=== PATIENT | male | born 1940 | race Caucasian/White ===

== ENCOUNTER 2017-06-04 16:52 | Inpatient (IN) | payer MEDICARE, BC ==
[~2017-06-04] VITALS: Ht 177.8 cm; Wt 77.9 kg
[~2017-06-04 16:52] MED LIST: AMLO10 PO; ASPI1TAB7 PO; BIOT5000 PO; CINSULIN PO; CO Q100C9 PO; CRAN1TAB2 PO; DIOV160T3 PO; FISH1000 PO; NIAC500 PO; OCUVTAB PO; PROS5TAB2 PO; SAW160TA PO; SIMV20TA PO; VITA1CAP2 PO
[2017-06-04 16:54] VITALS: BP 190/86; PULSE 70; RESP 18; TEMP 98.4; O2SAT 97
--- NOTE | 2017-06-04 17:14 | PD ---
Physical Exam Date Seen by Provider: Jun 04, 2017 Time Seen by Provider: 17:12 Data Data Last Documented VS Vital Signs Date Time Temp Pulse Resp B/P Pulse Ox O2 Delivery O2 Flow Rate FiO2 06/04/17 16:54 98.4 70 18 190/86 97 Room Air [facility] Supervised Visit with YANCI: No Narrative Course 77 YO with complaint of abnormal lab values on outpatient labs. Patient states that his Hgb is 7.6, drawn 8. Patient endorses CIFUENTES and increased somnolence. PCP Dr. James Ireland Vitals reviewed. Patient seen in triage, awaiting bed placement. Lisa Morrow Jun 04, 2017 17:14
[2017-06-04 17:54] LABS: AUTOMATED NEUTROPHIL # 4.1 TH/MM3 (1.8-7.7); BASOPHIL % 0.5 % (0.0-2.0); EOSINOPHIL # 0.1 TH/MM3 (0-0.4); EOSINOPHIL % 2.4 % (0.0-4.0); HEMATOCRIT 25.9 % (39.0-51.0); HEMO FLAGS DIFF FINAL; LYMPH % 14.2 % (9.0-44.0); LYMPHOCYTE # 0.8 TH/MM3 (1.0-4.8); MEAN CELL VOLUME 84.1 FL (80.0-100.0); MEAN CORPUSCULAR HEMOGLOBIN 29.1 PG (27.0-34.0); MEAN CORPUSCULAR HGB CONC 34.6 % (32.0-36.0); MONO % 8.8 % (0.0-8.0); NEUT % 74.1 % (16.0-70.0); PLATELET COUNT 212 TH/MM3 (150-450); RED BLOOD COUNT 3.08 MIL/MM3 (4.50-5.90); RED CELL DISTRIBUTION WIDTH 14.7 % (11.6-17.2); WHITE BLOOD COUNT 5.6 TH/MM3 (4.0-11.0)
[2017-06-04 18:02] LABS: INTERNATIONAL NORMALIZED RATIO 1.3 RATIO; PROTHROMBIN TIME - PATIENT 14.2 SEC (9.8-11.6)
[2017-06-04 18:28] LABS: ANION GAP 7 MEQ/L (5-15); AST (GOT) 26 U/L (15-37); BICARBONATE 26.3 MEQ/L (21.0-32.0); BLOOD UREA NITROGEN 19 MG/DL (7-18); CHLORIDE 102 MEQ/L (98-107); GLOMERULAR FILTRATION RATE 54 ML/MIN (>89); SODIUM (NA) 135 MEQ/L (136-145)
[2017-06-04 18:29] LABS: ALT (GPT) 25 U/L (12-78)
[2017-06-04 18:31] LABS: ALKALINE PHOSPHATASE 159 U/L (45-117); TOTAL BILIRUBIN ADULT 0.5 MG/DL (0.2-1.0)
[2017-06-04] MEDS ORDERED: FERR325T8 PO (19:53)
[2017-06-04] MEDS ORDERED: CARV12.52 PO (19:53)
[2017-06-04] MEDS ORDERED: FINA5TAB2 PO (19:53)
[2017-06-04] MEDS ORDERED: NIAC1TAB5 PO (19:53)
[2017-06-04] MEDS ORDERED: ASPI-110 PO (19:53)
[2017-06-04] MEDS ORDERED: CLOP75TA PO (19:53)
[2017-06-04] MEDS ORDERED: LOSA100T PO (19:53)
[2017-06-04] MEDS ORDERED: ATOR20TA15 PO (19:53)
[2017-06-04] MEDS ORDERED: FURO20TA PO (19:53)
[2017-06-04] MEDS ORDERED: POTA-163 PO (19:53)
[2017-06-04] MEDS ORDERED: HYDR-3799 PO (19:53)
--- NOTE | 2017-06-04 20:11 | PD ---
HPI Chief Complaint: Abnormal Results Time Seen by Provider: 19:10 Travel History International Travel<30 days: No Contact w/Intl Traveler<30days: No Traveled to known affect area: No History of Present Illness HPI Patient is a 77 year old male who comes in because he was told his blood level is low and that he needs a transfusion. He has been in an out of hospitals for the past few months. He was recently admitted to the [facility] for "a while" due to what he says was a MRSA infection in his chest. He says he has been home for about 1 week. He says since leaving the hospital, he has been very weak and gets SOB with any exertion. He says he has started doing physical therapy, but has not seen any improvements. He denies chest pain, nausea or vomiting. He has not had any fevers or chills. PFSH Past Medical History Arthritis: Yes Asthma: No Autoimmune Disease: No Blood Disorders: No Anxiety: No Depression: No Heart Rhythm Problems: Yes Cancer: No Cardiovascular Problems: Yes (6 VESSEL BYPASS SEP 2017) High Cholesterol: No Chest Pain: No Congestive Heart Failure: No COPD: No Cerebrovascular Accident: No Diabetes: No Diminished Hearing: No Endocrine: No GERD: No Glaucoma: No Genitourinary: No Headaches: No Hepatitis: No Hiatal Hernia: No Hypertension: Yes Immune Disorder: No Kidney Stones: No Medical other: Yes (ARTHRITIS, PSORIASIS) Musculoskeletal: Yes (OSTEOPENIA LOWER BACK) Neurologic: No Psychiatric: No Reproductive: No Respiratory: Yes Migraines: No Myocardial Infarction: No Renal Failure: No Seizures: No Sickle Cell Disease: No Sleep Apnea: No Thyroid Disease: No Ulcer: No Past Surgical History Abdominal Surgery: Yes (CHOLECYSTECTOMY 2004) AICD: No Appendectomy: No Arteriovenous Shunt: No Cardiac Surgery: No Cholecystectomy: Yes Coronary Artery Bypass Graft: Yes (4X) Ear Surgery: No Endocrine Surgery: No Eye Surgery: No Gynecologic Surgery: No Insulin Pump: No Joint Replacement: Yes (RT KNEE) Oral Surgery: No Pacemaker: No Thoracic Surgery: No Other Surgery: Yes Social History Alcohol Use: No Tobacco Use: No (never) Substance Use: Yes (HISTORY OF ALCHOLOL USE 20 YEARS AGO) Allergies-Medications (Allergen,Severity, Reaction): Coded Allergies: CRUZ Inhibitors (Unverified Allergy, Intermediate, Swelling, 09/11/13) Penicillin (Unverified Allergy, Intermediate, Hives, 4/29/10) 02/20/10 STATES TESTING DONE AT [facility] PROVES HE IS NOT ALLERGIC TO PENICILLINS Reported Meds & Prescriptions Reported Meds & Active Scripts Active Reported Niacin ER 1,000 Mg Tab 1,000 Mg PO HS Finasteride 5 Mg Tab 5 Mg PO DAILY Do not crush. Furosemide 20 Mg Tab 20 Mg PO DAILY Clopidogrel (Clopidogrel Bisulfate) 75 Mg Tab 75 Mg PO DAILY Atorvastatin (Atorvastatin Calcium) 20 Mg Tab 20 Mg PO HS Ferrous Sulfate 325 Mg (65 Mg Iron) Tablet 325 Mg PO BID Aspirin 81 (Aspirin) 81 Mg Tabdr 81 Mg PO DAILY Carvedilol 12.5 Mg Tab 12.5 Mg PO BID Hydralazine HCl 25 Mg Tablet 25 Mg PO BID Potassium Chloride ER (Potassium Chloride) 20 Meq Tab 20 Meq PO DAILY Losartan (Losartan Potassium) 100 Mg Tab 100 Mg PO DAILY Review of Systems Except as stated in HPI: all other systems reviewed are Neg General / Constitutional: No: Fever, Chills Eyes: No: Blurred Vision HENT: No: Headaches Cardiovascular: No: Chest Pain or Discomfort Respiratory: Positive: Cough, Shortness of Breath Gastrointestinal: No: Nausea, Vomiting, Abdominal Pain Musculoskeletal: Positive: Edema, No: Pain Neurologic: Positive: Weakness Physical Exam Narrative GENERAL: Awake and alert, in no acute distress. SKIN: Focused skin assessment warm/dry. HEAD: Atraumatic. Normocephalic. EYES: Pupils equal and round. No scleral icterus. ENT: Mucous membranes pink and moist. NECK: Trachea midline. No JVD. CARDIOVASCULAR: Regular rate and rhythm. No murmur appreciated. RESPIRATORY: No accessory muscle use. Clear to auscultation. Breath sounds equal bilaterally. GASTROINTESTINAL: Abdomen soft, non-tender, nondistended. MUSCULOSKELETAL: No obvious deformities. No clubbing. No cyanosis. 1+ pitting edema of bilateral lower extremities. NEUROLOGICAL: Awake and alert. No obvious cranial nerve deficits. Motor grossly within normal limits. Normal speech. PSYCHIATRIC: Appropriate mood and affect; insight and judgment normal. Data Data Last Documented VS Vital Signs Date Time Temp Pulse Resp B/P Pulse Ox O2 Delivery O2 Flow Rate FiO2 06/04/17 16:54 98.4 70 18 190/86 97 Room Air Orders Complete Blood Count With Diff (06/04/17 17:14) Comprehensive Metabolic Panel (06/04/17 17:14) Prothrombin Time / Inr (Pt) (06/04/17 17:14) Act Partial Throm Time (Ptt) (06/04/17 17:14) Type And Screen (06/04/17 17:14) B-Type Natriuretic Peptide (06/04/17 19:47) Chest, Pa & Lat (06/04/17 ) Ct Pulmonary Angiogram (06/04/17 19:47) Troponin I (06/04/17 19:47) Electrocardiogram (06/04/17 ) Iohexol 350 Inj (Omnipaque 350 Inj) (06/04/17 21:44) Vancomycin Inj (Vancomycin Inj) (06/04/17 22:45) Cefepime Inj (Maxipime Inj) (06/04/17 22:45) Admit Order (Ed Use Only) (06/04/17 ) Labs Laboratory Tests Test 06/04/17 17:25 White Blood Count 5.6 TH/MM3 Red Blood Count 3.08 MIL/MM3 Hemoglobin 8.9 GM/DL Hematocrit 25.9 % Mean Corpuscular Volume 84.1 FL Mean Corpuscular Hemoglobin 29.1 PG Mean Corpuscular Hemoglobin 34.6 % Concent Red Cell Distribution Width 14.7 % Platelet Count 212 TH/MM3 Mean Platelet Volume 7.7 FL Neutrophils (%) (Auto) 74.1 % Lymphocytes (%) (Auto) 14.2 % Monocytes (%) (Auto) 8.8 % Eosinophils (%) (Auto) 2.4 % Basophils (%) (Auto) 0.5 % Neutrophils # (Auto) 4.1 TH/MM3 Lymphocytes # (Auto) 0.8 TH/MM3 Monocytes # (Auto) 0.5 TH/MM3 Eosinophils # (Auto) 0.1 TH/MM3 Basophils # (Auto) 0.0 TH/MM3 CBC Comment DIFF FINAL Differential Comment Prothrombin Time 14.2 SEC Prothromb Time International 1.3 RATIO Ratio Activated Partial 28.0 SEC Thromboplast Time Sodium Level 135 MEQ/L Potassium Level 4.0 MEQ/L Chloride Level 102 MEQ/L Carbon Dioxide Level 26.3 MEQ/L Anion Gap 7 MEQ/L Blood Urea Nitrogen 19 MG/DL Creatinine 1.29 MG/DL Estimat Glomerular Filtration 54 ML/MIN Rate Random Glucose 109 MG/DL Calcium Level 8.2 MG/DL Total Bilirubin 0.5 MG/DL Aspartate Amino Transf 26 U/L (AST/SGOT) Alanine Aminotransferase 25 U/L (ALT/SGPT) Alkaline Phosphatase 159 U/L Troponin I LESS THAN 0.02 NG/ML B-Type Natriuretic Peptide 1363 PG/ML Total Protein 6.9 GM/DL Albumin 1.8 GM/DL Blood Type A POSITIVE Antibody Screen NEGATIVE MDM Medical Decision Making Medical Screen Exam Complete: Yes Emergency Medical Condition: Yes Interpretation(s) ECG shows sinus bradycardia at 59, no ST elevation or depression, normal intervals. Differential Diagnosis CHF exacerbation versus pneumonia versus PE Narrative Course Patient is a 77-year-old male who originally came in because his physician told him that his hemoglobin was low. He complains of shortness of breath on exertion. Exam shows crackles at both bases. IV established, labs sent. Labs show hemoglobin of 8.9. CTA of his chest shows evidence of possible empyema. Patient started on antibiotics. He will likely require drainage of the fluid in his lungs. Admitted for further management. Last [address] Angiography 06/04/17 194 Signed Impressions: Service Date/Time: Sunday, June 04, 2017 21:35 - CONCLUSION: 1. Negative for pulmonary embolus. 2. Abnormal pleural thickening, pleural enhancement and loculated lateral left pleural effusion with multiple air bubbles anteriorly which can be characteristic of empyema. 3. There is a more simple appearing [id number] right pleural effusion. There is peripheral and peribronchial consolidation in the left lung especially inferiorly. Stiven Michaud MD Chest X-Ray 06/04/17 0000 Signed Impressions: Service Date/Time: Sunday, June 04, 2017 20:10 - CONCLUSION: 1. Cardiomegaly with mild edema pattern and small left effusion. Patchy left basilar consolidation as well. Stiven Michaud MD Diagnosis Primary Impression: Empyema lung Admitting Information Admitting Physician Requests: Admit Condition: Stable Maite Carlos MD Jun 04, 2017 20:11
--- NOTE | 2017-06-04 20:59 | RADRPT ---
EXAM DATE/TIME: 06/04/2017 20:10 [facility] COMPARISON: No previous studies available for comparison. INDICATIONS : Shortness of breath. MEDICAL HISTORY : None. SURGICAL HISTORY : CABG. ENCOUNTER: Initial ACUITY: 1 month PAIN SCORE: Non-responsive. LOCATION: chest FINDINGS: There is cardiomegaly. Small left effusion present with basilar airspace disease, left greater than r ight. Atrial clip present. Previous CABG. CONCLUSION: 1. Cardiomegaly with mild edema pattern and small left effusion. Patchy left basilar consolidation as well. Stiven Michaud MD on June 04, 2017 at 20:57 Board Certified Radiologist. This report was verified electronically.
[2017-06-04] MEDS ORDERED: IOHEXOL 350 MG/ML 10 ML VIAL (for RAD DIAG) IV ONE (21:44)
--- NOTE | 2017-06-04 22:12 | RADRPT ---
EXAM DATE/TIME: 06/04/2017 21:35 [facility] COMPARISON: No previous studies available for comparison. INDICATIONS : Shortness of breath with extertion. Elevated HGB 7.9. IV CONTRAST: 69 cc IV RADIATION DOSE: 12.20 CTDIvol (mGy) MEDICAL HISTORY : Cardiovascular disease. Hypertension. SURGICAL HISTORY : CABG ENCOUNTER: Initial ACUITY: 1 day PAIN SCALE: 0/10 LOCATION: chest TECHNIQUE: Volumetric scanning of the chest was performed using a pulmonary embolism protocol MIP images were re constructed. Using automated exposure control and adjustment of the mA and/or kV according to patien t size, radiation dose was kept as low as reasonably achievable to obtain optimal diagnostic quality images. DICOM format image data is available electronically for review and comparison. Follow-up recommendations for detected pulmonary nodules are based at a minimum on nodule size and pa tient risk factors according to Fleischner Society Guidelines. FINDINGS: No filling defects identified to suggest pulmonary embolic disease. There is a moderate size right pl eural effusion and smaller left effusion that is loculated in multiple locations. Locules of air with in the lower anterior left effusion can be characteristic of empyema. There is airspace disease in the left lung especially in the peribronchial regions inferiorly. Mild c ompressive atelectasis right lung. Upper abdomen reveals mild ascites. Numerous granulomata in the liver and spleen. CONCLUSION: 1. Negative for pulmonary embolus. 2. Abnormal pleural thickening, pleural enhancement and loculated lateral left pleural effusion with multiple air bubbles anteriorly which can be characteristic of empyema. 3. There is a more simple appearing [id number] right pleural effusion. There is peripheral and peribronchial consolidation in the left lung especially inferiorly. Stiven Michaud MD on June 04, 2017 at 22:06 Board Certified Radiologist. This report was verified electronically.
[2017-06-04] MEDS ORDERED: CEFEPIME INJ 2,000 MG in SODIUM CHLORIDE 0.9% INJ 100 ML IV ONE (22:45)
[2017-06-04] MEDS ORDERED: VANCOMYCIN INJ 1,000 MG in SODIUM CHLOR 0.9% 250 ML INJ 250 ML IV ONE (22:45)
[2017-06-04] MEDS ORDERED: NALOXONE HCL 0.4 MG/ML AMP IV PRN (23:00)
[2017-06-04] MEDS ORDERED: MAGNESIUM HYDROXIDE SUSP 30 ML CUP PO PRN (23:00)
[2017-06-04] MEDS ORDERED: ONDANSETRON HCL 4 MG/2 ML VIAL IVP PRN (23:00)
[2017-06-04] MEDS ORDERED: LACTULOSE SYRUP 20 GM/30 ML CUP PO PRN (23:00)
[2017-06-04] MEDS ORDERED: SENNOSIDES 8.6 MG TAB PO PRN (23:00)
[2017-06-04] MEDS ORDERED: BISACODYL 10 MG SUPP RECTAL PRN (23:00)
[2017-06-04] MEDS ORDERED: CARVEDILOL 12.5 MG TAB PO SCH (23:00)
[2017-06-04] MEDS ORDERED: SODIUM CHLORIDE 0.9% FLUSH 10 ML FLUSH IV FLUSH PRN (23:00)
[2017-06-04] MEDS ORDERED: RESP: ALBUTEROL 2.5 MG/IPRATROPIUM 0.5 MG NEB (PRN) NEB (23:15)
[2017-06-04 23:19] VITALS: O2SAT 96
[2017-06-04 23:20] LABS: BLOOD GAS CARBOXYHEMOGLOBIN 1.5 % (0-4); BLOOD GAS HCO3 24 mmol/L (22-26); BLOOD GAS METHEMOGLOBIN 0.6 % (0-2); BLOOD GAS O2 HGB SATURATION 93 % (90-100); BLOOD GAS OXYGEN CONTENT 11.1 Vol % (12.0-20.0); BLOOD GAS PCO2 35 mmHg (38-42); BLOOD GAS PO2 73 mmHG (61-120); BLOOD GAS TOTAL HGB 8.4 G/DL (12.0-16.0); CRITICAL VALUE NO; DRAW SITE RT RADIAL; FIO2 21 %; TEMP CORR TO 98.6
[2017-06-04 23:21] LABS: NUMBER OF ARTERIAL PUNCTURES 1; STAT YES; ULNAR PULSE PRESENT
[2017-06-05] VITALS (14 sets, daily range): BP systolic 120–181; BP diastolic 65–88; PULSE 53–72; RESP 18–20; TEMP 96.4–99.4; O2SAT 94–98
[2017-06-05] MEDS: HEPARIN SODIUM - SQ 10,000 UNITS/ML VIAL SQ SCH ×2 (00:04→10:57)
[2017-06-05] MEDS: CEFEPIME INJ 1,000 MG in SODIUM CHLORIDE 0.9% INJ 100 ML IV SCH ×2 (05:46→13:56)
[2017-06-05 06:14] LABS: BASOPHIL % 0.4 % (0.0-2.0); EOSINOPHIL # 0.2 TH/MM3 (0-0.4); EOSINOPHIL % 3.2 % (0.0-4.0); HEMATOCRIT 25.1 % (39.0-51.0); HEMO FLAGS DIFF FINAL; LYMPHOCYTE # 0.7 TH/MM3 (1.0-4.8); MEAN CELL VOLUME 84.1 FL (80.0-100.0); MEAN CORPUSCULAR HEMOGLOBIN 28.3 PG (27.0-34.0); MEAN CORPUSCULAR HGB CONC 33.7 % (32.0-36.0); MONO % 9.9 % (0.0-8.0); NEUT % 73.5 % (16.0-70.0); PLATELET COUNT 200 TH/MM3 (150-450); RED BLOOD COUNT 2.99 MIL/MM3 (4.50-5.90); RED CELL DISTRIBUTION WIDTH 14.9 % (11.6-17.2); WHITE BLOOD COUNT 5.5 TH/MM3 (4.0-11.0)
[2017-06-05 06:46] LABS: BICARBONATE 24.7 MEQ/L (21.0-32.0); POTASSIUM 3.7 MEQ/L (3.5-5.1)
[2017-06-05 06:49] LABS: INDIRECT BILIRUBIN 0.3 MG/DL (0.0-0.8); TOTAL BILIRUBIN ADULT 0.5 MG/DL (0.2-1.0)
[2017-06-05] MEDS: FINASTERIDE 5 MG TAB PO SCH (08:22)
[2017-06-05] MEDS: FUROSEMIDE 20 MG TAB PO SCH (08:23)
[2017-06-05] MEDS: DOCUSATE SODIUM 50 MG/SENNA 8.6 MG TAB PO SCH ×2 (08:23→22:24)
[2017-06-05] MEDS: ASPIRIN EC 81 MG TABEC PO SCH (08:23)
[2017-06-05] MEDS: hydrALAZINE HCL 25 MG TAB PO SCH ×2 (08:23→22:23)
[2017-06-05] MEDS: LOSARTAN 50 MG TAB PO SCH (08:23)
[2017-06-05] MEDS: SODIUM CHLORIDE 0.9% FLUSH 10 ML FLUSH IV FLUSH SCH ×2 (08:24→22:24)
--- NOTE | 2017-06-05 08:38 | HHI.PR ---
Objective Objective Results - Vital Signs Date Time Temp Pulse Resp B/P Pulse Ox O2 Delivery O2 Flow Rate FiO2 06/05/17 08:21 98.4 55 20 156/75 95 06/05/17 06:05 147/69 06/05/17 02:54 98.5 62 18 181/86 94 06/05/17 01:30 61 18 151/69 96 Room Air 06/05/17 01:00 55 18 158/77 98 Room Air 06/05/17 00:30 59 18 162/81 96 Room Air 06/05/17 00:00 59 18 180/88 98 Room Air 06/04/17 23:19 96 06/04/17 16:54 98.4 70 18 190/86 97 Room Air Result Diagram: 06/05/17 0511 06/05/17 0511 A/P Assessment and Plan [id number] Old records ordered from [facility] Er, Jane Pizarro Jun 05, 2017 08:38
[2017-06-05] MEDS: CARVEDILOL 6.25 MG TAB PO SCH ×2 (08:56→22:24)
[2017-06-05] MEDS ORDERED: CLOPIDOGREL 75 MG TAB PO SCH (09:00)
--- NOTE | 2017-06-05 09:50 | MH ---
cc: SHERYL BOWLING MD DATE OF ADMISSION: 06/04/2017 DATE OF 1940 CHIEF COMPLAINT Generalized weakness and shortness of breath. RECENT TRAVEL: Travel in the last 30 days, nothing international. HISTORY OF PRESENT ILLNESS This is a pleasant 77 year-old white male who was in his usual state of health, she is well stated health until this past September when he had to have coronary bypass surgery. He states that he had this done at [facility] and had some postoperative complications to where he had approximately 11 liters of fluid drained off his she has had multiple times. The patient was stabilized and sent home but was still very weak and blood pressure was noted to be very low. His took him to the [facility], there he spent two weeks or longer being worked up for fluid in his chest with noted MRSA and was sent home with home health on antibiotic therapy. The patient states that he continues to be tired and weak. He was told that his blood count was low and that he need a transfusion by an unknown person. He was told that his blood was slow and that he might need to have a transfusion or some treatment. He presented to the emergency room with shortness of breath, generalized weakness for dry cough nonproductive. He denies any headache, states that since he has been here at the hospital. He is resting better with oxygen on and he is trying to sleep. He does have some noted brachycardia, 59 to 62, but over the past couple of hours in the early a.m. his heart rate has been in the 40s, the patient denies any fevers, no chills, no chest pain. No nausea, vomiting, diarrhea or constipation. PAST MEDICAL HISTORY: 1. Arthritis. 2. Six vessel bypass in September of 2016 3. cardiomegaly 4. hypertension 5. psoriasis 6. Osteopenia 7. degenerative disk disease low back PAST SURGICAL HISTORY Cholecystectomy right knee joint replacement Recent coronary artery bypass graft. ALLERGIES CRUZ inhibitors PENICILLIN. MEDICATIONS Niacin Finasteride Lasix Plavix Atorvastatin Ferrous sulfate. Aspirin Coreg Hydrazine Potassium Losartan SOCIAL HISTORY The patient is . He has no use of tobacco a over the did have a history of alcohol consumption in his younger years but none in the past 20 years. No illicit drugs. REVIEW OF SYSTEMS A 12 point review of systems was obtained, positives noted with the symptoms in the history of present illness which include; generalized weakness, fatigue, bradycardia, anemia. any other symptoms mentioned, other systems negative or unremarkable. PHYSICAL EXAMINATION: VITAL SIGNS: Temperature is 98.4, pulse is 55, respirations 20, blood pressure 156/75. O2 sat 95. Currently on 2 liters nasal cannula. GENERAL: Thin, elderly white male looks to be his stated age resting in the bed. He is alert, oriented and a good historian. SKIN: The skin is pale pink, warm and dry. HEAD, EYES, EARS, NOSE, AND THROAT: Atraumatic, normocephalic. Mucous membranes are pale pink. No scleral icterus. No exudate noted. NECK: The neck is supple. CARDIOVASCULAR SYSTEM: S1-S2 the rhythm is slow, no murmurs, rubs or gallops appreciated. He has no pedal edema. He has TOM hose on. He is positive for some mild JVD. RESPIRATORY: Lungs are essentially clear anteriorly and posteriorly in the upper frazier. He does have diminished decreased breath sounds bilateral in the lower frazier, left is greater then the right with the decreased sounds. ABDOMEN: Soft, flat, nontender, nondistended. Bowel sounds are soft. MUSCULOSKELETAL: Moves his extremities with purpose. No obvious deformities. He has TOM hose on, no acute edema. NEUROLOGICALLY: Awake, alert, a fairly good historian. Has equal hand shop cooper, Speech is clear. PSYCHIATRIC: Psychiatric mood and affect are appropriate for his current condition. DIAGNOSTIC DATA The white blood count 5.5, Red blood cells 2.99, hemoglobin 8.5, hematocrit 25.1. His hemoglobin on admission was 8.9, neutrophil count 73.5 monocyte count 9.9, PT/INR 1.3. CHEMISTRIES: Sodium 138 potassium 3.7, chloride 106, CO2 24.7, BUN on admission was 19, now listed as 18. Creatinine 1.25, GFR 56, glucose 88, calcium 7.6, alkaline phos 156, troponin initially was 0.02. B-type natriuretic peptide 1363, total protein 6.3, Albumin 1.7. IMAGING STUDIES: The imaging studies show chest x-ray to have cardiomegaly with a mild edema pattern and left effusion. CT angiography negative for pulmonary embolism, abnormal pleural thickening, pleural enhancement and lateral left pleural effusion with multiple air bubbles which are characteristic empyema. There is a more simple appearing small to moderate right pleural effusion, peripheral and peribronchial consolidation in the left especially inferiorly. ASSESSMENT: 1. Empyema of the lung. 2. Anemia. 3. Sinus bradycardia. 4. History of coronary artery disease 5. Cardiovascular disease. 6. Cardiomegaly. 7. Pleural effusion. 8. Possible mild congestive heart failure. PLAN: Our plan is to admit, we will reconcile medications as needed. Monitor his labs, vital signs will be q four hours and as needed as needed. O2 at two liters. The patient has been placed back on his p.o. Lasix, heparin Subcu for deep venous thrombosis prophylaxis. The patient is also on Plavix. The patient has been placed on antibiotic therapy. He received vancomycin and cefepime in the emergency room. Diet will be heart healthy. The patient currently is having some heart rates in the 50's and low 60's while awake, 40's this early a.m. while asleep. We will hold his a.m. Coreg dose and decreased his Coreg dose from 12.5 b.i.d. to 6.25 b.i.d. DuoNeb treatments as needed, hepatic function test. We will consult infectious disease for their expert opinion. The patient has already been placed on some antibiotic therapy but he will need further aggressive antibiotics. The patient does have a living will we discussed his wishes, he does want full code, full aggressive care, but he wants it to be known in the record that he does not want to be maintained for a long period of time on a ventilator if there is no chance for recovery for him. The patient may in the future need some drainage of the fluid noted in his lungs. We will continue to monitor closely. His course of treatment will be around the findings and his response to treatment. Sheryl Bowling MD DICTATED BY: MARY Manriquez /8:23 AM /8:44 AM seen, examined by myself, Dr Bowling, today Discussed with patient, he is hemodynamically stable Left empyema History of MRSA Continue antibiotics Consult ID and pulmonology Likely needs drainage Discussed with mid level provider The exam, history, and the medical decision-making described in the above note were completed with the assistance of the mid-level provider. I reviewed the findings presented. I attest that I had a [id number] encounter with the patient on the same day, and personally performed and documented my assessment and findings in the medical record. JESSE
--- NOTE | 2017-06-05 17:26 | MB ---
cc: MARVIN WONG DATE OF CONSULTATION 06/05/17 REASON FOR CONSULTATION Question empyema. HISTORY OF PRESENT ILLNESS Mr. Rivera is a 77-year-old male who has history of coronary artery disease post coronary artery bypass graft surgery at [facility] with complicated infection postoperatively including MRSA. The patient had multiple thoracenteses and including MRSA postoperatively and went to the [facility] where he was hospitalized for several weeks. He comes to the emergency room with generalized weakness, intermittent cough, shortness of breath with exertion. Denies history of fever, chills or hemoptysis. He did have a CT scan of the chest with loculation of the left lung base with air bubbles within the basilar effusion. The patient denies history of previous TB, industrial exposure or hemoptysis. PAST MEDICAL HISTORY 1. Coronary artery disease post coronary artery bypass graft surgery and subsequent infection done in September of 2016 2. History of hypertension, 3. Psoriasis, 4. Osteoporosis 5. Degenerative disk disease 6. Right knee replacement, 7. Cholecystectomy ALLERGIES CRUZ INHIBITORS PENICILLIN MEDICATIONS Upon presentation 1. Finasteride. 2. Lasix. 3. Plavix. 4. Atorvastatin 5. Ferrous sulfate. 6. Aspirin. 7. Hydralazine. 8. Potassium. 9. Losartan. FAMILY HISTORY Noncontributory. REVIEW OF SYSTEMS A 12-point review of systems as per HPI and past history, otherwise, negative PHYSICAL EXAMINATION GENERAL: The patient is alert. VITAL SIGNS: Temperature 98.4, respirations 18, blood pressure 150/74, oxygen saturation 95% on 2 liters oxygen nasal cannula. HEENT: Unremarkable. Eyes without icterus. NECK: Without adenopathy or thyroid enlargement. CHEST: Decreased breath sounds AT base. CARDIAC: PMI distant. S1-S2 audible. No murmur or rub. CHEST: Decreased breath sounds left base. ABDOMEN: Lax, bowel sounds audible. EXTREMITIES: No clubbing, cyanosis or edema. IMAGING STUDIES CT scan of the chest without evidence of pulmonary embolization. Loculation left lateral chest with air bubbles as discussed above. Small right pleural effusion is noted as well. Infiltrate left lung base is noted as well. LABORATORY DATA White count 5.5, hemoglobin 8.5, platelets 200,000. Sodium 138, potassium 3.7, BUN 18, creatinine 1.25. ABG - pH 7.45, pCO2 35, pO2 73 on room air. IMPRESSION 1. Infiltrate, effusion, bubbles left lung base, empyema suspect 2. Small right pleural effusion. 3. Coronary artery disease PLAN The patient would benefit from antibiotic therapy on empiric basis with anaerobic coverage. Infectious disease evaluation may be helpful as well. Meanwhile, thoracic surgery consult for possible decortication. Apparently some of the changes on the left lung base are chronic reviewing his previous records at [facility]. should be attempted. Meanwhile, obviously the patient needs to be hospitalized and followed closely. I do thank you for asking to partake in Mr. Rivera's care. Marvin Wong MD WWW/ /4:56 PM /5:06 PM
--- NOTE | 2017-06-05 17:54 | EKG ---
Date Performed: 06/04/2017 Time Performed: 20:24:58 PTAGE: 77 years EKG: SINUS BRADYCARDIA WITH SINUS ARRHYTHMIA NONSPECIFIC T-WAVE ABNORMALITY Compared to previous tracing, Sinus rhythm replaces atrial fibrillation. Diffuse T wave changes are more pronounced ABNORMAL ECG PREVIOUS TRACING : 02/26/2010 @ 1144 DOCTOR: Fercho Borrego Interpretating Date/Time 06/05/2017 17:53:10
--- NOTE | 2017-06-05 20:47 | PD.ID.CON ---
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 He was d/c on IV vancomycin and completed it 2 days prior to admission His PICVC was removed He c/o slowly worsening SOB and exercional dyspbnea + productive cough with whitish sputtum NO fever, chills, night sweats he was sent to ER 2/2 abnormal labs erport (anemia) and had CXR follwed by CTA He was noticed to have localutaed L peural effusion with air bubbles and pleural enchancement Review of Systems Constitutional: COMPLAINS OF: Fatigue Respiratory: COMPLAINS OF: Cough, Sputum production, Shortness of breath Cardiovascular: COMPLAINS OF: Chest pain, Dyspnea on Exertion Except as stated in HPI: all other systems reviewed are Neg Past Family Social History Allergies: Coded Allergies: CRUZ Inhibitors (Unverified Allergy, Intermediate, Swelling, 09/11/13) Penicillin (Unverified Allergy, Intermediate, Hives, 02/20/10) 02/20/10 STATES TESTING DONE AT [facility] PROVES HE IS NOT ALLERGIC TO PENICILLINS Past Medical History CAD L pelural empyema psoriasis atrhtitis osteoporosis Past Surgical History CABG in Sep 2016 L lung surgery 2 mos ago L TKA choleycstectomy Active Ordered Medications Medications where reviewed in EMR Antibiotics Include: cefepime Family History reviewed non contributory to current condition Social History remote ETOH life tiome non smoker Physical Exam Vital Signs Vital Signs Date Time Temp Pulse Resp B/P Pulse Ox O2 Delivery O2 Flow Rate FiO2 06/05/17 20:13 98.4 72 18 120/72 98 06/05/17 16:00 96.4 56 18 156/75 94 06/05/17 12:21 97.5 60 18 136/68 94 06/05/17 08:21 98.4 55 20 156/75 95 06/05/17 08:00 53 06/05/17 07:30 95 21 06/05/17 06:05 147/69 06/05/17 02:54 98.5 62 18 181/86 94 06/05/17 01:30 61 18 151/69 96 Room Air 06/05/17 01:00 55 18 158/77 98 Room Air 06/05/17 00:30 59 18 162/81 96 Room Air 06/05/17 00:00 59 18 180/88 98 Room Air 06/04/17 23:19 96 Physical Exam CONSTITUTIONAL/GENERAL: This is an adequately nourished patient, in no apparent distress. TUBES/LINES/DRAINS: SKIN: No jaundice, rashes, or lesions. Ecchymoses on upper extremities. Skin temperature appropriate. Not diaphoretic. HEAD: Atraumatic. Normocephalic. EYES: Pupils equal and round and reactive. Extraocular motions intact. No scleral icterus. No injection or drainage. Fundi not examined. ENT: Hearing grossly normal. Nose without bleeding or purulent drainage. oral mucosae without visible erythema, exudates, masses, or lesions. Good dentiion NECK: Trachea midline. Supple, nontender. CARDIOVASCULAR: Regular rate and rhythm without murmurs, gallops, or rubs. No JVD. Peripheral pulses symmetric. RESPIRATORY/CHEST: Symmetric, unlabored respirations. Deacerased breath sounds on the L to auscultation. No wheezes, rales, or rhonchi. Well healed new appearing L posterior thoracotomy scar GASTROINTESTINAL: Abdomen soft, non-tender, nondistended. No hepato-splenomegaly , or palpable masses. No guarding. Bowel sounds present. GENITOURINARY: Without palpable bladder distension. MUSCULOSKELETAL: Extremities without clubbing, cyanosis, or edema. No joint tenderness or effusion noted. No calf tenderness. No mottling or clubbing. LYMPHATICS: No palpable cervical or supraclavicular adenopathy. NEUROLOGICAL: Awake and alert. Motor and sensory grossly within normal limits. Follows commands. Clear speech. Moves all extremities. PSYCHIATRIC: No obvious anxiety/depression. no apparent hallucinations or other psychotic thought process. Laboratory Laboratory Tests Test 06/04/17 06/05/17 23:03 05:11 Blood Gas Puncture Site RT RADIAL Blood Gas Patient Temperature 98.6 Blood Gas HCO3 24 Blood Gas Base Excess 0.0 Blood Gas Oxygen Saturation 93 Arterial Blood pH 7.45 Arterial Blood Partial 35 Pressure CO2 Arterial Blood Partial 73 Pressure O2 Arterial Blood Oxygen Content 11.1 Arterial Blood 1.5 Carboxyhemoglobin Arterial Blood Methemoglobin 0.6 Blood Gas Hemoglobin 8.4 Blood Gas Inspired Oxygen 21 White Blood Count 5.5 Red Blood Count 2.99 Hemoglobin 8.5 Hematocrit 25.1 Mean Corpuscular Volume 84.1 Mean Corpuscular Hemoglobin 28.3 Mean Corpuscular Hemoglobin 33.7 Concent Red Cell Distribution Width 14.9 Platelet Count 200 Mean Platelet Volume 7.9 Neutrophils (%) (Auto) 73.5 Lymphocytes (%) (Auto) 13.0 Monocytes (%) (Auto) 9.9 Eosinophils (%) (Auto) 3.2 Basophils (%) (Auto) 0.4 Neutrophils # (Auto) 4.0 Lymphocytes # (Auto) 0.7 Monocytes # (Auto) 0.5 Eosinophils # (Auto) 0.2 Basophils # (Auto) 0.0 CBC Comment DIFF FINAL Differential Comment Sodium Level 138 Potassium Level 3.7 Chloride Level 106 Carbon Dioxide Level 24.7 Anion Gap 7 Blood Urea Nitrogen 18 Creatinine 1.25 Estimat Glomerular Filtration 56 Rate Random Glucose 88 Calcium Level 7.6 Total Bilirubin 0.5 Direct Bilirubin 0.2 Indirect Bilirubin 0.3 Aspartate Amino Transf 29 (AST/SGOT) Alanine Aminotransferase 24 (ALT/SGPT) Alkaline Phosphatase 156 Total Protein 6.3 Albumin 1.7 Result Diagram: 06/05/17 0511 06/05/17 [address] Angiography 06/04/17 194 Signed Impressions: Service Date/Time: Sunday, June 04, 2017 21:35 - CONCLUSION: 1. Negative for pulmonary embolus. 2. Abnormal pleural thickening, pleural enhancement and loculated lateral left pleural effusion with multiple air bubbles anteriorly which can be characteristic of empyema. 3. There is a more simple appearing [id number] right pleural effusion. There is peripheral and peribronchial consolidation in the left lung especially inferiorly. Stiven Michaud MD Chest X-Ray 06/04/17 0000 Signed Impressions: Service Date/Time: Sunday, June 04, 2017 20:10 - CONCLUSION: 1. Cardiomegaly with mild edema pattern and small left effusion. Patchy left basilar consolidation as well. Stiven Michaud MD Assessment and Plan Assessment and Plan left pleural effusion with multiple air bubbles anteriorly characteristic of empyema. Recent h/o MRSA empyema following CABG - sp surgical tx in [facility] allergy? - pt states he has no issue s with penicillin except some remote reaction, he subsequently was tested for allergic reaction in [place] but was nor allergic to it start vancomycin cont cefepime Flagyl CT guided aspiration of pleural fluid collectin Pt haoever is on plavix so it will take some time for time for plavix wash out Caroline Saldaña MD Jun 05, 2017 20:47
[2017-06-05] MEDS: metroNIDAZOLE 500 MG INJ 100 ML IV SCH (22:23)
[2017-06-05] MEDS: NIACIN 500 MG EXTENDED RELEASE TAB PO SCH (22:23)
[2017-06-05] MEDS: ATORVASTATIN 20 MG TAB PO SCH (22:24)
[2017-06-06] VITALS (14 sets, daily range): BP systolic 135–185; BP diastolic 72–100; PULSE 57–93; RESP 16–22; TEMP 97.4–100.4; O2SAT 94–99
[2017-06-06] MEDS: HEPARIN SODIUM - SQ 10,000 UNITS/ML VIAL SQ SCH ×3 (00:07→23:22)
[2017-06-06] MEDS: CEFEPIME INJ 1,000 MG in SODIUM CHLORIDE 0.9% INJ 100 ML IV SCH ×4 (00:08→20:57)
[2017-06-06] MEDS: metroNIDAZOLE 500 MG INJ 100 ML IV SCH ×3 (06:00→20:58)
[2017-06-06] MEDS: SODIUM CHLORIDE 0.9% FLUSH 10 ML FLUSH IV FLUSH SCH ×2 (08:30→20:58)
[2017-06-06] MEDS: ASPIRIN EC 81 MG TABEC PO SCH (08:31)
[2017-06-06] MEDS: FUROSEMIDE 20 MG TAB PO SCH (08:31)
[2017-06-06] MEDS: FINASTERIDE 5 MG TAB PO SCH (08:31)
[2017-06-06] MEDS: hydrALAZINE HCL 25 MG TAB PO SCH ×2 (08:31→20:49)
[2017-06-06] MEDS: CARVEDILOL 6.25 MG TAB PO SCH ×2 (08:31→20:49)
[2017-06-06] MEDS: LOSARTAN 50 MG TAB PO SCH (08:31)
[2017-06-06] MEDS: DOCUSATE SODIUM 50 MG/SENNA 8.6 MG TAB PO SCH ×2 (08:31→20:49)
--- NOTE | 2017-06-06 09:20 | HHI.PR ---
Subjective Remarks Up walking around bed Early maintaining on room air shortness of breath has improved Low-grade fever 99.4 (Jane Pizarro) Objective Objective Results - Vital Signs Date Time Temp Pulse Resp B/P Pulse Ox O2 Delivery O2 Flow Rate FiO2 06/06/17 08:05 98.4 60 18 166/84 98 06/06/17 08:00 57 06/06/17 04:00 100.4 57 18 162/74 99 06/06/17 03:47 57 06/06/17 00:14 69 06/05/17 23:37 99.4 66 18 152/73 98 06/05/17 20:28 67 06/05/17 20:13 98.7 68 18 174/65 98 06/05/17 16:00 96.4 56 18 156/75 94 06/05/17 12:21 97.5 60 18 136/68 94 (Jane Pizarro) Result Diagram: 06/05/17 0511 06/05/17 0511 ROS General: Fatigue (easily), Other (10 point ROS done positives noted) Cardiac: Chest Pain (none) Pulmonary: SOB (exertional) (Jane Pizarro) Physical Exam Physical Exam PHYSICAL EXAMINATION GENERAL: This is a thin elderly male who appears to be in no acute distress this a.m. He is alert and awake, mild anxiety over current condition HEAD: Normocephalic without any lesion or mass noted. Facial features appear symmetric. OROPHARYNGEAL: Oropharynx without erythema or edema. NECK: Supple. No nuchal rigidity or lymphadenopathy. Trachea midline without deviation. CARDIAC: Regular rhythm, regular rate, S1 and S2 are heard. Possible S3 gallop heard LUNGS: Diminished breath sounds to auscultation bilaterally with special attention to the right side. No acute wheezing or rhonchi heard ABDOMEN: Soft, mild tenderness noted to the left side, seems to be more muscle skeletal, Bowel sounds are heard in all four quadrants. EXTREMITIES: No lower extremity edema. TEDs hose on NEUROLOGICAL: Patient mood and affect appropriate SKIN:Warm and moist (Jane Pizarro) A/P Assessment and Plan Vital signs monitored patient low-grade temp 99 for, other trends within normal range Labs reviewed from admission, CBC and CMP ordered for tomorrow Bowel regimen states within normal range 1. Empyema of the lung. Appreciate ID consult and input, patient is on IV antibiotics vancomycin, cefepime, Flagyl. Explained in detail patient's plan of care and possible further testing needed. Patient is now on subcutaneous heparin, Plavix removed per IDs note, and for possible further testing in the near future. Patient may need possible decortication dependent on his response to therapy and plan of care. 2. Anemia. Secondary to chronic disease, patient also had CABG back in September 2016, monitor his labs, no obvious bleeding noted 3. Sinus bradycardia. Continuous ECG or telemetry monitoring, currently pulse is greater than 60 normal range 4. History of coronary artery disease CABG September 2016, medical management, denied any chest pain for now, cardiology consult done appreciate input 5. Cardiovascular disease. Medical management 6. Cardiomegaly. Patient does have pleural effusion, decreased breath sounds on the right, shortness of breath is controlled today patient is feeling better, ordered incentive spirometry Noted some mild drying of his nares, added humidified oxygen to his regimen, he plans to use it when necessary only 7. Pleural effusion. May need needle aspiration in the near future, is for me or to this procedure has had it done before in previous admissions. Patient has had treatment at the [facility], and [facility]. Records still pending from the [facility] 8. Possible mild congestive heart failure. Medical management oxygen, cardiology consult, currently compensated, no shortness of breath this morning Patient has increased his activity to being up in room, no chest pain no dizziness noted DVT prophylaxis with heparin, aspirin PPI prophylaxis Discussed with patient, supportive care Discussed with nurse Discussed with Dr. Buck, seen on his behalf (Jane Pizarro) Assessment and Plan seen, examined by myself, Dr Buck, today Discussed with patient Discussed with nurse He has a recurring left-sided empyema Stable on antibiotics Thoracic surgery consulted for left decortication Pulmonary and infectious disease following Admit to inpatient Discussed with mid level provider The exam, history, and the medical decision-making described in the above note were completed with the assistance of the mid-level provider. I reviewed the findings presented. I attest that I had a [id number] encounter with the patient on the same day, and personally performed and documented my assessment and findings in the medical record. (Sheryl Buck MD) Jane Pizarro Jun 06, 2017 09:19 Sheryl Buck MD Jun 06, 2017 12:30
--- NOTE | 2017-06-06 15:11 | HHI.PR ---
Objective Vital Signs Date Time Temp Pulse Resp B/P Pulse Ox O2 Delivery O2 Flow Rate FiO2 06/06/17 12:02 62 06/06/17 11:22 97.7 65 20 135/72 94 06/06/17 09:20 96 Nasal Cannula 2.00 Humidified 06/06/17 08:05 98.4 60 18 166/84 98 06/06/17 08:00 57 06/06/17 07:55 98 Nasal Cannula 2.00 06/06/17 04:00 100.4 57 18 162/74 99 06/06/17 03:47 57 06/06/17 00:14 69 06/05/17 23:37 99.4 66 18 152/73 98 06/05/17 20:28 67 06/05/17 20:13 98.7 68 18 174/65 98 06/05/17 16:00 96.4 56 18 156/75 94 Result Diagram: 06/05/17 0511 06/05/17 0511 Objective Remarks alert afebrile no sob Medications and IVs GENERAL: SKIN: Warm and dry. HEAD: Atraumatic. Normocephalic. EYES: Pupils equal and round. No scleral icterus. No injection or drainage. ENT: No nasal bleeding or discharge. Mucous membranes pink and moist. NECK: Trachea midline. No JVD. CARDIOVASCULAR: Regular rate and rhythm. RESPIRATORY: No accessory muscle use. Clear to auscultation. Breath sounds equal bilaterally. GASTROINTESTINAL: Abdomen soft, non-tender, nondistended. Hepatic and splenic margins not palpable. MUSCULOSKELETAL: Extremities without clubbing, cyanosis, or edema. No obvious deformities. NEUROLOGICAL: Awake and alert. No obvious cranial nerve deficits. Motor grossly within normal limits. Five out of 5 muscle strength in the arms and legs. Normal speech. PSYCHIATRIC: Appropriate mood and affect; insight and judgment normal. Assessment and Plan Assessment and Plan ass: empyema plan antibiotics thoracic surgery to see Marvin Wong MD Jun 06, 2017 15:11
[2017-06-06] MEDS: ATORVASTATIN 20 MG TAB PO SCH (20:49)
[2017-06-06] MEDS: NIACIN 500 MG EXTENDED RELEASE TAB PO SCH (20:57)
[2017-06-07] VITALS (9 sets, daily range): BP systolic 154–176; BP diastolic 73–92; PULSE 58–89; RESP 18–22; TEMP 97.6–98.3; O2SAT 96–100
[2017-06-07] MEDS: metroNIDAZOLE 500 MG INJ 100 ML IV SCH ×2 (06:00→15:00)
[2017-06-07] MEDS: CEFEPIME INJ 1,000 MG in SODIUM CHLORIDE 0.9% INJ 100 ML IV SCH ×3 (06:15→22:41)
[2017-06-07] MEDS: FINASTERIDE 5 MG TAB PO SCH (08:42)
[2017-06-07] MEDS: FUROSEMIDE 20 MG TAB PO SCH ×2 (08:42→21:05)
[2017-06-07] MEDS: CARVEDILOL 6.25 MG TAB PO SCH ×2 (08:42→21:05)
[2017-06-07] MEDS: hydrALAZINE HCL 25 MG TAB PO SCH ×2 (08:42→21:05)
[2017-06-07] MEDS: LOSARTAN 50 MG TAB PO SCH (08:42)
[2017-06-07] MEDS: ASPIRIN EC 81 MG TABEC PO SCH (08:42)
[2017-06-07] MEDS: DOCUSATE SODIUM 50 MG/SENNA 8.6 MG TAB PO SCH ×2 (08:42→21:06)
[2017-06-07] MEDS: SODIUM CHLORIDE 0.9% FLUSH 10 ML FLUSH IV FLUSH SCH ×2 (08:43→21:00)
--- NOTE | 2017-06-07 09:56 | HHI.PR ---
Subjective Remarks Eating breakfast 90%, states appetite is mild improvement Using oxygen most of the time O2 2 L makes him feel better, drying to his mucous membranes, added humidity yesterday which is helping Plan for pulmonary and cardiothoracic consult today (Jane Pizarro) Objective Objective Results - Vital Signs Date Time Temp Pulse Resp B/P Pulse Ox O2 Delivery O2 Flow Rate FiO2 06/07/17 08:45 98 Nasal Cannula 2.00 06/07/17 08:00 97.6 58 20 163/78 99 06/07/17 04:00 97.9 67 22 160/90 98 06/07/17 04:00 Nasal Cannula 2.00 06/07/17 00:00 98.2 89 20 154/73 99 06/07/17 00:00 Nasal Cannula 2.00 06/06/17 20:32 93 06/06/17 20:19 95 Nasal Cannula 2.00 06/06/17 20:00 97.9 86 22 171/100 98 06/06/17 20:00 Nasal Cannula 2.00 06/06/17 17:55 95 2.00 06/06/17 17:28 97.4 68 185/87 96 06/06/17 15:37 98.4 66 16 164/78 96 06/06/17 12:02 62 06/06/17 11:22 97.7 65 20 135/72 94 I/O 06/06/17 06/06/17 06/06/17 06/07/17 06/07/17 06/07/17 07:00 15:00 23:00 07:00 15:00 23:00 Intake Total 440 ml 900 ml Output Total 50 ml Balance 390 ml 900 ml Intake Oral 240 ml 900 ml IV Total 200 ml Output Urine Total 50 ml # Voids 2 (Jane Pizarro) Result Diagram: 06/05/1751006/05/17510 Other Results Last Impressions CT Angiography 06/04/171946 Signed Impressions: Service Date/Time: Sunday, June 04, 2017 21:35 - CONCLUSION: 1. Negative for pulmonary embolus. 2. Abnormal pleural thickening, pleural enhancement and loculated lateral left pleural effusion with multiple air bubbles anteriorly which can be characteristic of empyema. 3. There is a more simple appearing [id number] right pleural effusion. There is peripheral and peribronchial consolidation in the left lung especially inferiorly. Stiven Michaud MD Chest X-Ray 06/04/17 0000 Signed Impressions: Service Date/Time: Sunday, June 04, 2017 20:10 - CONCLUSION: 1. Cardiomegaly with mild edema pattern and small left effusion. Patchy left basilar consolidation as well. Stiven Michaud MD (Jane Pizarro) ROS General: Fatigue, Weakness Pulmonary: Cough, SOB GI: BM Neuro/MS: Other (Jane Pizarro) Physical Exam Physical Exam PHYSICAL EXAMINATION GENERAL: This is a thin elderly male Sitting up on side of bed eating breakfast He is alert and awake, states some mild anxiety over current condition HEAD: Normocephalic without any lesion or mass noted. Facial features appear symmetric. OROPHARYNGEAL: Oropharynx clear NECK: Supple. Trachea midline without deviation. CARDIAC: Regular rhythm, regular rate, S1 and S2 are heard. LUNGS: Diminished to auscultation bilaterally. Volumes low to medium with deep breathing, and current study incentive spirometry No use of accessory muscles on inspiration or expiration. ABDOMEN: Soft, nontender, no organomegaly or masses. Bowel sounds are heard in all four quadrants. No rebound. No guarding. EXTREMITIES: No lower extremity edema. Pulses equal bilateral. NEUROLOGICAL: Patient mood and affect appropriate. No focal deficit SKIN:Warm and dry (Jane Pizarro) A/P Assessment and Plan Vital signs monitored patient, B/P 160/90, afebrile Labs reviewed, anemia stable at 8.5, hgb, no leukocytosis noted Bowel regimen states within normal range, daily Increase activity today up in chair, can stand alone in bed without any acute distress Continues to be in contact isolation 1. Empyema of the lung. Appreciate ID consult and input, patient is on IV antibiotics vancomycin, cefepime, Flagyl. Plan to see pulmonary consult today as well as cardiothoracic surgeon. Possible decortication Patient more comfortable with his oxygen on, denies any acute chest pain 2. Anemia. Secondary to chronic disease, patient also had CABG back in September 2016, monitor his labs, no obvious bleeding noted 3. Sinus bradycardia. 2 sinus rhythm Monitor medical management with his medications Continuous ECG or telemetry monitoring, currently pulse is greater than 60 normal range 4. History of coronary artery disease CABG September 2016, medical management, denied any chest pain for now, cardiology consult done and following , no acute [place] this admission ,appreciate input 5. Cardiovascular disease. Medical management, noted cardiothoracic surgeon consult today for his empyema 6. Cardiomegaly. Patient does have pleural effusion, decreased breath sounds on the right, shortness of breath is controlled today patient is feeling better, ordered incentive spirometry and encouraged to continue using today. Mucous membranes dry nasal, 7. Pleural effusion. Mild shortness of breath but seems to be compensated . May need needle aspiration in the near future, is for me or to this procedure has had it done before in previous admissions. Patient has had treatment at the [facility], and [facility]. Records ordered from [facility] this past weekend 8. Possible mild congestive heart failure. Medical management oxygen, cardiology consult, currently compensated, no shortness of breath this morning Patient has increased his activity to being up in room, no chest pain no dizziness noted DVT prophylaxis with heparin, aspirin, Plavix off day 2 PPI prophylaxis Discussed with patient, supportive care Discussed with nurse Discussed with Dr. Buck, seen on his behalf (Jane Pizarro) Assessment and Plan seen, examined by myself, Dr Buck, today Discussed with patient and his The patient's most recent echocardiogram shows ejection fraction of 38% with diastolic dysfunction, this was done about a month ago, Lasix was increased to 40 mg by mouth twice a day He still waiting for thoracic surgery evaluation Consult was requested again Discussed with mid level provider The exam, history, and the medical decision-making described in the above note were completed with the assistance of the mid-level provider. I reviewed the findings presented. I attest that I had a [id number] encounter with the patient on the same day, and personally performed and documented my assessment and findings in the medical record. (Sheryl Buck MD) Jane Pizarro Jun 07, 2017 09:56 Sheryl Buck MD Jun 07, 2017 20:41
[2017-06-07] MEDS: HEPARIN SODIUM - SQ 10,000 UNITS/ML VIAL SQ SCH ×2 (11:00→22:40)
[2017-06-07 11:27] LABS: HEMATOCRIT 29.7 % (39.0-51.0); MEAN CELL VOLUME 85.6 FL (80.0-100.0); MEAN CORPUSCULAR HEMOGLOBIN 27.9 PG (27.0-34.0); MEAN CORPUSCULAR HGB CONC 32.6 % (32.0-36.0); PLATELET COUNT 213 TH/MM3 (150-450); RED BLOOD COUNT 3.47 MIL/MM3 (4.50-5.90); RED CELL DISTRIBUTION WIDTH 15.5 % (11.6-17.2); REVIEW FLAG FINAL; WHITE BLOOD COUNT 5.2 TH/MM3 (4.0-11.0)
[2017-06-07 11:54] LABS: ALKALINE PHOSPHATASE 147 U/L (45-117); ALT (GPT) 19 U/L (12-78); ANION GAP 6 MEQ/L (5-15); AST (GOT) 22 U/L (15-37); BICARBONATE 26.4 MEQ/L (21.0-32.0); BLOOD UREA NITROGEN 16 MG/DL (7-18); CHLORIDE 106 MEQ/L (98-107); GLOMERULAR FILTRATION RATE 58 ML/MIN (>89); POTASSIUM 3.9 MEQ/L (3.5-5.1); SODIUM (NA) 138 MEQ/L (136-145); TOTAL BILIRUBIN ADULT 0.6 MG/DL (0.2-1.0)
[2017-06-07 12:01] LABS: P2Y12 REACTION UNITS (PRU) 121 PRU (194-418)
--- NOTE | 2017-06-07 16:33 | HHI.PR ---
Subjective Remarks ALERT NO SOB AFEBRILE Objective Vital Signs Date Time Temp Pulse Resp B/P Pulse Ox O2 Delivery O2 Flow Rate FiO2 06/07/17 12:00 98.3 64 18 162/92 96 06/07/17 08:45 98 Nasal Cannula 2.00 06/07/17 08:20 Nasal Cannula 2.00 06/07/17 08:20 71 06/07/17 08:00 97.6 58 20 163/78 99 06/07/17 04:00 97.9 67 22 160/90 98 06/07/17 04:00 Nasal Cannula 2.00 06/07/17 00:00 98.2 89 20 154/73 99 06/07/17 00:00 Nasal Cannula 2.00 06/06/17 20:32 93 06/06/17 20:19 95 Nasal Cannula 2.00 06/06/17 20:00 97.9 86 22 171/100 98 06/06/17 20:00 Nasal Cannula 2.00 06/06/17 17:55 95 2.00 06/06/17 17:28 97.4 68 185/87 96 I/O 06/06/17 06/06/17 06/06/17 06/07/17 06/07/17 06/07/17 07:00 15:00 23:00 07:00 15:00 23:00 Intake Total 440 ml 900 ml Output Total 50 ml Balance 390 ml 900 ml Intake Oral 240 ml 900 ml IV Total 200 ml Output Urine Total 50 ml # Voids 2 Result Diagram: 06/07/17 1017 06/07/17 1017 Objective Remarks alert afebrile no sob Assessment and Plan Assessment and Plan ass: empyema plan antibiotics thoracic surgery to see Marvin Wong MD Jun 07, 2017 16:33
--- NOTE | 2017-06-07 18:33 | HHI.IDPN ---
Subjective Subjective Remarks no fever since 2 days ago BNP 1300+ no fever today, normal WBC Antibiotics cefepime Allergies: Coded Allergies: CRUZ Inhibitors (Unverified Allergy, Intermediate, Swelling, 09/11/13) Penicillin (Unverified Allergy, Intermediate, Hives, 02/20/10) 02/20/10 STATES TESTING DONE AT [facility] PROVES HE IS NOT ALLERGIC TO PENICILLINS *MDRO Multi-Drug Resistant Organism (Verified Allergy, Unknown, 06/06/17) PATIENT STATES HISTORY OF Objective . Vital Signs Date Time Temp Pulse Resp B/P Pulse Ox O2 Delivery O2 Flow Rate FiO2 06/07/17 16:00 97.6 62 20 176/86 100 06/07/17 12:00 98.3 64 18 162/92 96 06/07/17 08:45 98 Nasal Cannula 2.00 06/07/17 08:20 Nasal Cannula 2.00 06/07/17 08:20 71 06/07/17 08:00 97.6 58 20 163/78 99 06/07/17 04:00 97.9 67 22 160/90 98 06/07/17 04:00 Nasal Cannula 2.00 06/07/17 00:00 98.2 89 20 154/73 99 06/07/17 00:00 Nasal Cannula 2.00 06/06/17 20:32 93 06/06/17 20:19 95 Nasal Cannula 2.00 06/06/17 20:00 97.9 86 22 171/100 98 06/06/17 20:00 Nasal Cannula 2.00 06/06/17 06/06/17 06/07/17 15:00 23:00 07:00 Intake Total 440 ml 900 ml Output Total 50 ml Balance 390 ml 900 ml Intake Oral 240 ml 900 ml IV Total 200 ml Output Urine Total 50 ml # Voids 2 . Laboratory Tests Test 06/07/17 10:17 White Blood Count 5.2 TH/MM3 Red Blood Count 3.47 MIL/MM3 Hemoglobin 9.7 GM/DL Hematocrit 29.7 % Mean Corpuscular Volume 85.6 FL Mean Corpuscular Hemoglobin 27.9 PG Mean Corpuscular Hemoglobin 32.6 % Concent Red Cell Distribution Width 15.5 % Platelet Count 213 TH/MM3 Mean Platelet Volume 8.0 FL Laboratory Tests Test 06/07/17 10:17 Sodium Level 138 MEQ/L Potassium Level 3.9 MEQ/L Chloride Level 106 MEQ/L Carbon Dioxide Level 26.4 MEQ/L Anion Gap 6 MEQ/L Blood Urea Nitrogen 16 MG/DL Creatinine 1.21 MG/DL Estimat Glomerular Filtration 58 ML/MIN Rate Random Glucose 110 MG/DL Calcium Level 8.4 MG/DL Total Bilirubin 0.6 MG/DL Aspartate Amino Transf 22 U/L (AST/SGOT) Alanine Aminotransferase 19 U/L (ALT/SGPT) Alkaline Phosphatase 147 U/L Total Protein 7.0 GM/DL Albumin 1.9 GM/DL Imaging Last Impressions CT Angiography 06/04/17 194 Signed Impressions: Service Date/Time: Sunday, June 04, 2017 21:35 - CONCLUSION: 1. Negative for pulmonary embolus. 2. Abnormal pleural thickening, pleural enhancement and loculated lateral left pleural effusion with multiple air bubbles anteriorly which can be characteristic of empyema. 3. There is a more simple appearing obozb-jp-uvguvyxb right pleural effusion. There is peripheral and peribronchial consolidation in the left lung especially inferiorly. Stiven Michaud MD Chest X-Ray 06/04/17 0000 Signed Impressions: Service Date/Time: Sunday, June 04, 2017 20:10 - CONCLUSION: 1. Cardiomegaly with mild edema pattern and small left effusion. Patchy left basilar consolidation as well. Stiven Michaud MD Physical Exam CONSTITUTIONAL/GENERAL: This is an adequately nourished patient, in no apparent distress. TUBES/LINES/DRAINS: SKIN: No jaundice, rashes, or lesions. Ecchymoses on upper extremities. Skin temperature appropriate. Not diaphoretic. ENT: Hearing grossly normal. Nose without bleeding or purulent drainage. oral mucosae without visible erythema, exudates, masses, or lesions. Good dentiion CARDIOVASCULAR: Regular rate and rhythm without murmurs, gallops, or rubs. No JVD. RESPIRATORY/CHEST: Symmetric, unlabored respirations. Deacerased breath sounds on the L to auscultation. No wheezes, rales, or rhonchi. GASTROINTESTINAL: Abdomen soft, non-tender, nondistended. No hepato-splenomegaly , or palpable masses. No guarding. Bowel sounds present. MUSCULOSKELETAL: Extremities without clubbing, cyanosis, or edema. No joint tenderness or effusion noted. No calf tenderness. No mottling or clubbing. NEUROLOGICAL: Awake and alert. Motor and sensory grossly within normal limits. Follows commands. Clear speech. Moves all extremities. PSYCHIATRIC: No obvious anxiety/depression. no apparent hallucinations or other psychotic thought process. Assessment & Plan Remarks left pleural effusion with multiple air bubbles anteriorly characteristic of empyema vs posty op changes - fever x 1 Recent h/o MRSA empyema following CABG - sp surgical tx in [place] PCN allergy? - pt states he has no issue s with penicillin except some remote reaction, he subsequently was tested for allergic reaction in [place] but was nor allergic to it start vancomycin cont cefepime Flagyl po awaiting CT surgery consult cwse was dw Dr Marvin Saldaña,Caroline Richardson MD Jun 07, 2017 18:33
[2017-06-07] MEDS ORDERED: Vancomycin Consult Pharmacy 1 EA OTHER SCH (18:45)
[2017-06-07] MEDS: VANCOMYCIN INJ 1,250 MG in SODIUM CHLOR 0.9% 250 ML INJ 250 ML IV SCH (21:05)
[2017-06-07] MEDS: NIACIN 500 MG EXTENDED RELEASE TAB PO SCH (21:05)
[2017-06-07] MEDS: ATORVASTATIN 20 MG TAB PO SCH (21:06)
[2017-06-07] MEDS: metroNIDAZOLE 500 MG TAB PO SCH (22:40)
[2017-06-07] MEDS ORDERED: PILL SPLITTER OTHER PRN (23:00)
[2017-06-07] MEDS: LORazepam 0.5 MG TAB PO PRN (23:30)
[2017-06-08] VITALS (8 sets, daily range): BP systolic 148–170; BP diastolic 74–90; PULSE 62–74; RESP 18–19; TEMP 97–98.6; O2SAT 93–99
[2017-06-08] MEDS: metroNIDAZOLE 500 MG TAB PO SCH ×3 (06:07→22:08)
[2017-06-08] MEDS: CEFEPIME INJ 1,000 MG in SODIUM CHLORIDE 0.9% INJ 100 ML IV SCH ×3 (06:08→22:20)
--- NOTE | 2017-06-08 08:47 | MB ---
cc: JENNIFER SMILEY DATE OF CONSULTATION 06/07/2017 DATE OF 1940. HISTORY OF THE PRESENT ILLNESS A 77-year-old male who presented to the emergency room with generalized weakness, intermittent cough, shortness of breath with exertion. Denied any recent fever, chills or hemoptysis. They did do a CT of the chest which showed some possible loculation of the left lung base with air bubbles within the basilar effusion. The patient had undergone coronary artery bypass graft x October 09, [address] Leopoldo Cazares at [facility] with bilateral lower extremity saphenous vein grafting. After surgery he apparently developed multiple pleural effusions that have been tapped more than five times in that left lung. He states that total amount with the five thoracenteses would be about 11,000 cc of fluid. The last time that he had a thoracentesis he was up in the [place] area and became very faint while he was at [facility]. They took him to the emergency room at [place] and had to place a large bore chest tube. He says that he thought that they had nicked his vein and he had a lot of blood in his chest. After that he was finally released from the hospital and decided to follow up himself at [facility] where he stayed in the hospital for quite some time and underwent left thoracotomy and decortication approximately more than 2 weeks ago. They did find MRSA in his pleural fluid. He was treated with IV antibiotics which he completed two days prior to admission. We were consulted because of the abnormal CT chest. Dr. Smiley did review the CT chest. He did have a small right pleural effusion and very residual small amount of fluid in that left chest. He has had multiple interventions. He is currently afebrile with no leukocytosis. PAST MEDICAL HISTORY 1. Coronary artery disease. 2. Hypertension. 3. Psoriasis. 4. Osteoporosis. 5. Degenerative disk disease. PAST SURGICAL HISTORY Surgeries include: 1. Right knee replacement. 2. Cholecystectomy. 3. Coronary artery bypass graft x October 09, 2016. ALLERGIES THE PATIENT HAS ALLERGIES TO CRUZ INHIBITOR. ALSO PENICILLIN BUT HE WAS TOLD THAT HE WAS NOT ALLERGIC TO PENICILLIN DUE TO SOME TESTING AT [place] IN THE PAST. MEDICATIONS Home medications include: 1. Finasteride. 2. Lasix. 3. Plavix. 4. Atorvastatin. 5. Ferrous sulfate. 6. Aspirin. 7. Hydralazine. 8. Potassium. 9. Losartan. SOCIAL HISTORY Remote history of ethyl alcohol. No tobacco. The patient is . REVIEW OF SYSTEMS As above in HPI, otherwise 12 systems unremarkable. PHYSICAL EXAMINATION VITAL SIGNS: On exam blood pressure 160/90, heart rate 64, afebrile. O2 sat 98 on 2 liters. GENERAL: Patient is awake, alert, in no acute distress. HEENT: Head is normocephalic, atraumatic. Pupils equal and reactive. Oral mucosa pink, moist. NECK: Supple. No JVD. CARDIOVASCULAR: Heart sounds S1-S2 regular rate and rhythm. No audible rubs or gallops. He has a midline sternotomy incision that is well healed and approximated. He also has a left posterior lateral chest wall incision, intact, well-approximated. He has a small scab over his prior chest tube site. Breath sounds slightly diminished on the left, otherwise the right is clear. ABDOMEN: Soft, nontender. No masses or organomegaly. EXTREMITIES: Reveal trace edema with good distal pulses. IMAGING The CT scan reading no evidence of pulmonary emboli. Some questionable loculation left lateral chest wall with some air bubbles as discussed. LABORATORY DATA The lab work shows hemoglobin 9.7, hematocrit 29, white cell count 5.2, platelet count 213. Sodium 138, potassium 3.9, BUN 16, creatinine 1.21. Troponin less than 0.02. INR 1.3. Radiological exams as above. IMPRESSION This is a 77-year-old male that has had multiple thoracenteses, also a left thoracotomy with decortication a couple weeks ago at [facility]. We are still trying to obtain those records. There is very small residual fluid. The patient has had multiple interventions. There is no leukocytosis. No fever. He has been treated for the recent history of MRSA in his fluid. Pleural fluid for empyema. He has completed his course of IV antibiotics. Currently being followed by ID. Recommend medical treatment at this time. If you should have any questions please contact Dr. Jennifer Smiley. No surgical intervention at this time. Probable changes due to also from his recent surgery. DICTATED BY: MARY Zuniga Jennifer Smiley MD CH/BRIAN /4:59 PM /8:44 AM
[2017-06-08] MEDS: hydrALAZINE HCL 25 MG TAB PO SCH ×2 (08:49→22:08)
[2017-06-08] MEDS: FUROSEMIDE 20 MG TAB PO SCH ×2 (08:49→22:07)
[2017-06-08] MEDS: DOCUSATE SODIUM 50 MG/SENNA 8.6 MG TAB PO SCH ×2 (08:49→21:00)
[2017-06-08] MEDS: FINASTERIDE 5 MG TAB PO SCH (08:49)
[2017-06-08] MEDS: ASPIRIN EC 81 MG TABEC PO SCH (08:49)
[2017-06-08] MEDS: CARVEDILOL 6.25 MG TAB PO SCH ×2 (08:49→21:00)
[2017-06-08] MEDS: SODIUM CHLORIDE 0.9% FLUSH 10 ML FLUSH IV FLUSH SCH ×2 (08:50→21:00)
[2017-06-08] MEDS: LOSARTAN 50 MG TAB PO SCH (08:50)
--- NOTE | 2017-06-08 10:25 | HHI.FF ---
Face to Face Verification Diagnosis: (1) Empyema lung Home Health Nursing Order: Medical education Signs/symptoms of disease process Nursing assessment with vital signs IV medication administration I have seen patient Scott Sam on 06/08/17. My clinical findings support the need for the requested home health care services because: Deconditioned w/ increased weakness Need for psychosocial assistance I certify that my clinical findings support that this patient is homebound because: Post-op weakness Need for psychosocial assistance Lexii Bautista [facility] Jun 08, 2017 10:25
[2017-06-08] MEDS: HEPARIN SODIUM - SQ 10,000 UNITS/ML VIAL SQ SCH ×2 (12:48→22:18)
[2017-06-08] MEDS: VANCOMYCIN INJ 1,250 MG in SODIUM CHLOR 0.9% 250 ML INJ 250 ML IV SCH (13:32)
--- NOTE | 2017-06-08 13:44 | HHI.PR ---
Subjective Subjective Remarks no cp no sob no fever no diarrhea anxious to go home no acute changes overnight Review of Systems Constitutional Constitutional Remarks 12 point ros completed, negative except as noted above Vitals/Results Intake & Output 06/07/17 06/07/17 06/08/17 15:00 23:00 07:00 Intake Total 1280 ml 367 ml Output Total 300 ml Balance 1280 ml 67 ml Intake Oral 1280 ml IV Total 367 ml Output Urine Total 300 ml # Voids 3 5 # Bowel Movements 2 2 1 Vital Signs Vital Signs Date Time Temp Pulse Resp B/P Pulse Ox O2 Delivery O2 Flow Rate FiO2 06/08/17 11:21 94 06/08/17 08:00 98.6 63 18 155/74 93 06/08/17 08:00 Nasal Cannula 2.00 06/08/17 07:51 74 06/08/17 04:00 98.4 62 18 160/77 97 06/08/17 00:00 97.6 69 18 162/83 99 06/08/17 00:00 Nasal Cannula 2.00 06/07/17 20:00 Nasal Cannula 2.00 06/07/17 20:00 97.8 69 18 160/84 99 06/07/17 19:59 97 Nasal Cannula 2.00 06/07/17 16:00 97.6 62 20 176/86 100 CBC/BMP: 06/07/17 1017 06/07/17 1017 Physical Exam General General Appearance: Well Developed, Well Nourished, No Acute Distress, Comfortable Eyes Eye Exam: Pupils Equal, Pupils Reactive Ears & Nose Ears & Nose Exam: Nasal Mucosa [place] Throat Throat Exam: Oral Mucosa [place] & Moist Neck Neck Exam: Neck Supple, Trachea Midline Pulmonary Resp Remarks decreased to bases Cardiology CV Exam: Regular Gastrointestinal/Abdomen GI Exam: Soft, Non-Tender, Bowel Sounds Present, Non-Distended Musculoskeletal MS Exam: Joints Intact Integumentary Skin Exam: Warm, Dry Extremeties Extremities Exam: No Edema, Pedal Pulses Palpable Neurologic Neuro Exam: Alert, Awake, Oriented, Speech Clear, Moving All Extremities, No Focal Deficits Psychiatric Psych Exam: Appropriate Responses VTE Prophylaxis VTE Prophylaxis Meds: Heparin Assessment/Plan Problem List: (1) Empyema lung (2) Anemia (3) Diastolic heart failure (4) CAD (coronary artery disease) (5) Hx of CABG Assessment/Plan Left pleural effusion, empyema appreciate ID and pulm input continue abx evaluated per CT surgery, recommends no surgery, continue with abx. Likely has chronic, surgery changes Anemia sec. CKD continue to monitor CBC CAD, hx of recent CABG continue home meds appreciate card input Dyastolic heart dysfunction right pleural effusion recent echo, EF 38% continue Lasix 40 mg PO BID DVT prophylaxis with heparin CM for dc planning, resume HHC will wait for ID for abx recommendations needs to f/u with cardiology as OP Discussed with patient Discussed with nurse Discussed with Dr. Sharma This patient was seen by myself and Dr. Sharma, this note is written on his behalf Problem Qualifiers (1) Anemia: Qualified Code: D64.9 - Anemia, unspecified type (2) Diastolic heart failure: Qualified Code: I50.32 - Chronic diastolic heart failure (3) CAD (coronary artery disease): Qualified Code: I25.10 - Coronary artery disease involving [place] coronary artery of [place] heart without angina pectoris Lexii Bautista Jun 08, 2017 13:44
--- NOTE | 2017-06-08 16:31 | HHI.IDPN ---
Subjective Subjective Remarks no fever Off O2 not SOB WBC normal Antibiotics cefepime vanco flagyl Allergies: Coded Allergies: CRUZ Inhibitors (Unverified Allergy, Intermediate, Swelling, 09/11/13) Penicillin (Unverified Allergy, Intermediate, Hives, 02/20/10) 02/20/10 STATES TESTING DONE AT [facility] PROVES HE IS NOT ALLERGIC TO PENICILLINS *MDRO Multi-Drug Resistant Organism (Verified Allergy, Unknown, 06/06/17) PATIENT STATES HISTORY OF Objective . Vital Signs Date Time Temp Pulse Resp B/P Pulse Ox O2 Delivery O2 Flow Rate FiO2 06/08/17 11:21 94 06/08/17 08:00 98.6 63 18 155/74 93 06/08/17 08:00 Nasal Cannula 2.00 06/08/17 07:51 74 06/08/17 04:00 98.4 62 18 160/77 97 06/08/17 00:00 97.6 69 18 162/83 99 06/08/17 00:00 Nasal Cannula 2.00 06/07/17 20:00 Nasal Cannula 2.00 06/07/17 20:00 97.8 69 18 160/84 99 06/07/17 19:59 97 Nasal Cannula 2.00 06/07/17 06/07/17 06/08/17 15:00 23:00 07:00 Intake Total 1280 ml 367 ml Output Total 300 ml Balance 1280 ml 67 ml Intake Oral 1280 ml IV Total 367 ml Output Urine Total 300 ml # Voids 3 5 # Bowel Movements 2 2 1 . Laboratory Tests Test 06/07/17 10:17 White Blood Count 5.2 TH/MM3 Red Blood Count 3.47 MIL/MM3 Hemoglobin 9.7 GM/DL Hematocrit 29.7 % Mean Corpuscular Volume 85.6 FL Mean Corpuscular Hemoglobin 27.9 PG Mean Corpuscular Hemoglobin 32.6 % Concent Red Cell Distribution Width 15.5 % Platelet Count 213 TH/MM3 Mean Platelet Volume 8.0 FL Laboratory Tests Test 06/07/17 10:17 Sodium Level 138 MEQ/L Potassium Level 3.9 MEQ/L Chloride Level 106 MEQ/L Carbon Dioxide Level 26.4 MEQ/L Anion Gap 6 MEQ/L Blood Urea Nitrogen 16 MG/DL Creatinine 1.21 MG/DL Estimat Glomerular Filtration 58 ML/MIN Rate Random Glucose 110 MG/DL Calcium Level 8.4 MG/DL Total Bilirubin 0.6 MG/DL Aspartate Amino Transf 22 U/L (AST/SGOT) Alanine Aminotransferase 19 U/L (ALT/SGPT) Alkaline Phosphatase 147 U/L Total Protein 7.0 GM/DL Albumin 1.9 GM/DL Imaging Last Impressions CT Angiography 06/04/17 1947 Signed Impressions: Service Date/Time: Sunday, June 04, 2017 21:35 - CONCLUSION: 1. Negative for pulmonary embolus. 2. Abnormal pleural thickening, pleural enhancement and loculated lateral left pleural effusion with multiple air bubbles anteriorly which can be characteristic of empyema. 3. There is a more simple appearing tpttv-ib-ydjneuhl right pleural effusion. There is peripheral and peribronchial consolidation in the left lung especially inferiorly. Stivne Michaud MD Chest X-Ray 06/04/17 0000 Signed Impressions: Service Date/Time: Sunday, June 04, 2017 20:10 - CONCLUSION: 1. Cardiomegaly with mild edema pattern and small left effusion. Patchy left basilar consolidation as well. Stiven Michaud MD Physical Exam CONSTITUTIONAL/GENERAL: This is an adequately nourished patient, in no apparent distress. TUBES/LINES/DRAINS: SKIN: No jaundice, rashes, or lesions. Ecchymoses on upper extremities. Skin temperature appropriate. Not diaphoretic. ENT: Hearing grossly normal. Nose without bleeding or purulent drainage. oral mucosae without visible erythema, exudates, masses, or lesions. Good dentiion CARDIOVASCULAR: Regular rate and rhythm without murmurs, gallops, or rubs. No JVD. RESPIRATORY/CHEST: Symmetric, unlabored respirations. Decerased breath sounds on the L to auscultation. No wheezes, rales, or rhonchi. Well healed incision GASTROINTESTINAL: Abdomen soft, non-tender, nondistended. No hepato-splenomegaly , or palpable masses. No guarding. Bowel sounds present. MUSCULOSKELETAL: Extremities without clubbing, cyanosis, or edema. No joint tenderness or effusion noted. No calf tenderness. No mottling or clubbing. NEUROLOGICAL: Awake and alert. Motor and sensory grossly within normal limits. Follows commands. Clear speech. Moves all extremities. PSYCHIATRIC: No obvious anxiety/depression. no apparent hallucinations or other psychotic thought process. Assessment & Plan Remarks left pleural effusion with multiple air bubbles anteriorly characteristic of empyema vs post op changes: Changes seen on CT can be expected post op and taking into account lack of leukocytosis or consistgent fevers chances are low that it s infection - sp decortication 3 weeks ago completed vanco - fever x 1 Recent h/o MRSA empyema following CABG - sp surgical tx in [place] PCN allergy? - pt states he has no issue s with penicillin except some remote reaction, he subsequently was tested for allergic reaction in [place] but was nor allergic to it dc abx F/u CT chest in 1 month if doing well or earlier if develops fever, chills, SOB , cough fu with Dr Marvin DIAZ [place] [employer] c[place] was dw CT team and radiologist Dr Derrek escobar family at b/s Caroline Saldaña MD Jun 08, 2017 16:31
--- NOTE | 2017-06-08 17:36 | ECHRPT ---
Indication: SHORTNESS OF BREATH CONCLUSIONS Mildly dilated left ventricle. The left ventricular systolic function is sxbqdrks-qj-ezyrgys reduced with an estimated ejection fra ction in the range of 35-40%. Doppler parameters are consistent with a restrictive left ventricular filling pattern indicative of decreased left ventricular diastolic compliance and increase left atrial pressure (grade 3 diastolic dysfuncti on). The right ventricular systoilc function is mildly decreased. Cjlx-ax-pkjjwpmh mitral valve regurgitation. Small echodensity noted with extra cardiac motion on the anterior leaflet of the mitral valve, possi ble vegetation. Mild aortic valve regurgitation . Possible small echodensity noted with extra cardiac motion off the right coronary cusp of the aortic valve, possible vegetation. There is moderate tricuspid regurgitation. There is estimated severe pulmonary hypertension present ( > 70 mmHg). BP: 135 / 72 HR: 62 Rhythm: Sinus MEASUREMENTS (Male / Female) Normal Values Technical Quality:Good 2D ECHO LV Diastolic Diameter PLAX 6.1 cm 4.2 - 5.9 / 3.9 - 5.3 cm LV Systolic Diameter PLAX 5.1 cm IVS Diastolic Thickness 1.0 cm 0.6 - 1.0 / 0.6 - 0.9 cm LVPW Diastolic Thickness 0.9 cm 0.6 - 1.0 / 0.6 - 0.9 cm LV Relative Wall Thickness 0.3 LVOT Diameter 2.2 cm Aortic Root Diameter 3.5 cm M-MODE AV Cusp Separation MM 2.3 cm DOPPLER AV Peak Velocity 162.0 cm/s AV Peak Gradient 10.5 mmHg AV Mean Gradient 6.0 mmHg AV Velocity Time Integral 36.0 cm AI Peak Velocity 294.0 cm/s AI Peak Gradient 34.6 mmHg AI Pressure Half Time 551.0 ms LVOT Peak Velocity 59.4 cm/s LVOT Peak Gradient 1.4 mmHg LVOT Velocity Time Integral 13.4 cm LVOT Cardiac Index 2775.1 cm/minm AV Area Cont Eq vti 1.4 cm AV Area Cont Eq pk 1.4 cm Mitral E Point Velocity 94.3 cm/s LV E' Lateral Velocity 7.0 cm/s Mitral E to LV E' Lateral Ratio 13.4 LV E' Septal Velocity 2.5 cm/s Mitral E to LV E' Septal Ratio 37.3 TR Peak Velocity 399.0 cm/s TR Peak Gradient 63.7 mmHg PV Peak Velocity 77.5 cm/s PV Peak Gradient 2.4 mmHg FINDINGS LEFT VENTRICLE Mildly dilated left ventricle. Wall thickness is normal. The left ventricular systolic function is baseynsn-ow-ipeunjh reduced with an estimated ejection fra ction in the range of 35-40%. There is global left ventricular dysfunction. Doppler parameters are consistent with a restrictive left ventricular filling pattern indicative of decreased left ventricular diastolic compliance and increase left atrial pressure (grade 3 diastolic dysfuncti on). RIGHT VENTRICLE The right ventricular size is normal. The right ventricular systoilc function is mildly decreased. LEFT ATRIUM The left atrial size is moderately dilated. RIGHT ATRIUM The right atrial size is mildly dilated. ATRIAL SEPTUM The interatrial septum not well visualized. AORTA The aortic root and proximal ascending aorta are normal in size on limited imaging. MITRAL VALVE Structurally normal mitral valve. Cklj-jp-qakoasep mitral valve regurgitation. No mitral valve stenosis. Small echodensity noted with extra cardiac motion on the anterior leaflet of the mitral valve, possi ble vegetation AORTIC VALVE Trileaflet aortic valve. No aortic valve stenosis. Mild aortic valve regurgitation . Mild thickening of the aortic valve leaflets. Possible small echodensity noted with extra cardiac motion off the right coronary cusp, possible vegetation. TRICUSPID VALVE Structurally normal tricuspid valve. There is estimated severe pulmonary hypertension present ( > 70 mmHg). There is moderate tricuspid regurgitation. PULMONARY VALVE No pulmonary stenosis. Trace pulmonary insufficiency. VESSELS The inferior vena cava is normal in size. There is less than 50% respiratory change in dimension of the inferior vena cava (abnormal). PERICARDIUM No pericardial effusion. Adrian Quesada DO (Electronically Signed) Final Date:08 June 2017 17:36
--- NOTE | 2017-06-08 18:15 | HHI.PR ---
Subjective Remarks ALERT NO SOB AFEBRILE AMBULATING Objective GENERAL: SKIN: Warm and dry. HEAD: Atraumatic. Normocephalic. EYES: Pupils equal and round. No scleral icterus. No injection or drainage. ENT: No nasal bleeding or discharge. Mucous membranes pink and moist. NECK: Trachea midline. No JVD. CARDIOVASCULAR: Regular rate and rhythm. RESPIRATORY: No accessory muscle use. Clear to auscultation. Breath sounds equal bilaterally. GASTROINTESTINAL: Abdomen soft, non-tender, nondistended. Hepatic and splenic margins not palpable. MUSCULOSKELETAL: Extremities without clubbing, cyanosis, or edema. No obvious deformities. NEUROLOGICAL: Awake and alert. No obvious cranial nerve deficits. Motor grossly within normal limits. Five out of 5 muscle strength in the arms and legs. Normal speech. PSYCHIATRIC: Appropriate mood and affect; insight and judgment normal. Vital Signs Date Time Temp Pulse Resp B/P Pulse Ox O2 Delivery O2 Flow Rate FiO2 06/08/17 16:00 97.0 65 18 170/90 96 06/08/17 12:00 98.6 63 18 153/74 98 06/08/17 11:21 94 06/08/17 08:00 98.6 63 18 155/74 93 06/08/17 08:00 Nasal Cannula 2.00 06/08/17 07:51 74 06/08/17 04:00 98.4 62 18 160/77 97 06/08/17 00:00 97.6 69 18 162/83 99 06/08/17 00:00 Nasal Cannula 2.00 06/07/17 20:00 Nasal Cannula 2.00 06/07/17 20:00 97.8 69 18 160/84 99 06/07/17 19:59 97 Nasal Cannula 2.00 I/O 06/07/17 06/07/17 06/07/17 06/08/17 06/08/17 06/08/17 07:00 15:00 23:00 07:00 15:00 23:00 Intake Total 900 ml 1280 ml 367 ml Output Total 300 ml Balance 900 ml 1280 ml 67 ml Intake Oral 900 ml 1280 ml IV Total 367 ml Output Urine Total 300 ml # Voids 2 3 5 # Bowel Movements 2 2 1 Result Diagram: 06/07/17 1017 06/07/17 1017 Objective Remarks alert afebrile no sob Assessment and Plan Assessment and Plan ass: empyema plan antibiotics HOME AM IF STABLE Marvin Wong MD Jun 08, 2017 18:15
[2017-06-08] MEDS: NIACIN 500 MG EXTENDED RELEASE TAB PO SCH (22:07)
[2017-06-08] MEDS: ATORVASTATIN 20 MG TAB PO SCH (22:08)
[2017-06-08] MEDS: LORazepam 0.5 MG TAB PO PRN (22:17)
[2017-06-09] VITALS: BP 137/75; PULSE 68; RESP 17; TEMP 98.2; O2SAT 98
[2017-06-09 04:00] VITALS: BP 157/80; PULSE 72; RESP 18; TEMP 97.9; O2SAT 96
[2017-06-09] MEDS: CEFEPIME INJ 1,000 MG in SODIUM CHLORIDE 0.9% INJ 100 ML IV SCH (06:15)
[2017-06-09] MEDS: metroNIDAZOLE 500 MG TAB PO SCH (06:29)
[2017-06-09 08:00] VITALS: BP 172/87; PULSE 74; RESP 17; TEMP 98.4; O2SAT 96
[2017-06-09 08:03] VITALS: PULSE 68
[2017-06-09] MEDS ORDERED: PHARMACY ORDERED LAB ONE (08:45)
--- NOTE | 2017-06-09 08:52 | HHI.PR ---
Subjective Subjective Remarks no cp no sob only with excessive activity no fever no diarrhea anxious to go home no acute changes overnight Review of Systems Constitutional Constitutional Remarks 12 point ros completed, negative except as noted above Vitals/Results Intake & Output 06/08/17 06/08/17 06/09/17 15:00 23:00 07:00 Intake Total 960 ml 540 ml 380 ml Output Total 1000 ml 700 ml 850 ml Balance -40 ml -160 ml -470 ml Intake Oral 960 ml 540 ml 380 ml Output Urine Total 1000 ml 700 ml 850 ml # Bowel Movements 0 1 1 Vital Signs Vital Signs Date Time Temp Pulse Resp B/P Pulse Ox O2 Delivery O2 Flow Rate FiO2 06/09/17 04:00 97.9 72 18 157/80 96 06/09/17 04:00 Nasal Cannula 2.00 06/09/17 00:00 98.2 68 17 137/75 98 06/09/17 00:00 Nasal Cannula 2.00 06/08/17 20:00 98.2 68 19 148/80 95 06/08/17 20:00 Nasal Cannula 2.00 06/08/17 16:00 97.0 65 18 170/90 96 06/08/17 12:00 98.6 63 18 153/74 98 06/08/17 11:21 94 CBC/BMP: 06/07/17 1017 06/07/17 1017 Physical Exam General General Appearance: Well Developed, Well Nourished, No Acute Distress, Comfortable Eyes Eye Exam: Pupils Equal, Pupils Reactive Ears & Nose Ears & Nose Exam: Nasal Mucosa [place] Throat Throat Exam: Oral Mucosa [place] & Moist Neck Neck Exam: Neck Supple, Trachea Midline Pulmonary Resp Remarks decreased to bases Cardiology CV Exam: Regular Gastrointestinal/Abdomen GI Exam: Soft, Non-Tender, Bowel Sounds Present, Non-Distended Musculoskeletal MS Exam: Joints Intact Integumentary Skin Exam: Warm, Dry Extremeties Extremities Exam: No Edema, Pedal Pulses Palpable Neurologic Neuro Exam: Alert, Awake, Oriented, Speech Clear, Moving All Extremities, No Focal Deficits Psychiatric Psych Exam: Appropriate Responses VTE Prophylaxis VTE Prophylaxis Meds: Heparin Assessment/Plan Problem List: (1) Empyema lung (2) Anemia (3) Diastolic heart failure (4) CAD (coronary artery disease) (5) Hx of CABG Assessment/Plan Left pleural effusion, empyema appreciate ID and pulm input evaluated per CT surgery, recommends no surgery, continue with abx. Likely has chronic, surgery changes ID recommends no outpatient antibiotics, poss post op changes. Anemia sec. CKD continue to monitor CBC CAD, hx of recent CABG continue home meds appreciate card input Dyastolic heart dysfunction right pleural effusion recent echo, EF 38% continue Lasix 40 mg PO BID, already on Lasix 20 mg po daily. recently evaluated by Dr. Dunne 1 week ago DVT prophylaxis with heparin no need for IV abx doesn't want HHC, lives with pt. stable, no fever cleared for dc by ID and pulm Discharge home f/u Dr. Wong, Dr. Dunne, PCP Diet-heart healthy Activity-as tolerated Discussed with patient Discussed with nurse Discussed with Dr. Sharma This patient was seen by myself and Dr. Sharma, this note is written on his behalf Problem Qualifiers (1) Anemia: Qualified Code: D64.9 - Anemia, unspecified type (2) Diastolic heart failure: Qualified Code: I50.32 - Chronic diastolic heart failure (3) CAD (coronary artery disease): Qualified Code: I25.10 - Coronary artery disease involving [place] coronary artery of [place] heart without angina pectoris Lexii Bautista Jun 09, 2017 08:52
[2017-06-09] MEDS ORDERED: FURO20TA PO (08:55)
--- NOTE | 2017-06-09 08:55 | HHI.DCPOC ---
Discharge Care Plan Diagnosis: (1) Empyema lung (2) Anemia (3) CAD (coronary artery disease) (4) Diastolic heart failure (5) CHF (congestive heart failure) (6) Hx of CABG Your Health Problems Are: Chest Pain Fluid/Lung Overload Goals to Promote Your Health * To prevent worsening of your condition and complications * To maintain your health at the optimal level Directions to Meet Your Goals Take your medications as prescribed Follow your dietary instruction Follow activity as directed Keep your appointments as scheduled Take your immunizations and boosters as scheduled If your symptoms worsen call your PCP, if no PCP go to Urgent Care Center or Emergency Room Smoking is Dangerous to Your Health. Avoid second hand smoke Call the 24-hour hour crisis hotline for domestic abuse at Lexii Bautista [facility] Jun 09, 2017 08:55
[2017-06-09] MEDS: ASPIRIN EC 81 MG TABEC PO SCH (09:36)
[2017-06-09] MEDS: DOCUSATE SODIUM 50 MG/SENNA 8.6 MG TAB PO SCH (09:36)
[2017-06-09] MEDS: hydrALAZINE HCL 25 MG TAB PO SCH (09:37)
[2017-06-09] MEDS: SODIUM CHLORIDE 0.9% FLUSH 10 ML FLUSH IV FLUSH SCH (09:37)
[2017-06-09] MEDS: CARVEDILOL 6.25 MG TAB PO SCH (09:37)
[2017-06-09] MEDS: LOSARTAN 50 MG TAB PO SCH (09:37)
[2017-06-09] MEDS: FINASTERIDE 5 MG TAB PO SCH (09:37)
[2017-06-09] MEDS: FUROSEMIDE 20 MG TAB PO SCH (09:37)
[2017-06-09 12:00] VITALS: BP 174/87; PULSE 73; RESP 17; TEMP 97.4; O2SAT 96
== END 2017-06-09 13:56 | disposition home or self-care (01) | DRG 178 ==
LOC: NEPC 16:52 → NEDA 22:52 → NEPFCDU 06-05 02:42 → N04A 06-06 16:40
PROVIDERS: ADMIT Specialist; ATTEND Specialist
DX: J86.9 Pyothorax without fistula (principal); I50.32 Chronic diastolic (congestive) heart failure; R00.1 Bradycardia, unspecified; D63.8 Anemia in other chronic diseases classified elsewhere; I25.10 Atherosclerotic heart disease of native coronary artery without angina pectoris; Z95.1 Presence of aortocoronary bypass graft; I51.7 Cardiomegaly; Z86.14 Personal history of Methicillin resistant Staphylococcus aureus infection; I10 Essential (primary) hypertension; L40.9 Psoriasis, unspecified; M81.0 Age-related osteoporosis without current pathological fracture; Z96.653 Presence of artificial knee joint, bilateral
CPT/HCPCS: 36600; 71020; 71275; 80048; 80053; 80076; 80202; 82805; 83880; 84484; 85025; 85027; 85576; 85610; 85730; 86850; 86900; 86901; 93005; 93306; 94150; J0692; J1644; J2405; J3370; J7050; Q9967